=== PATIENT | female | born 1990 | race Caucasian/White ===

== ENCOUNTER 2019-01-30 17:25 | Emergency (ER) | payer BC ==
[2019-01-30 18:04] LABS: Urine Blood 1+ (NEG); Urine Glucose NEGATIVE (NEG); Urine Protein NEGATIVE (NEG)
[2019-01-30 18:39] LABS: Basophils % 0.6 % (0-1.3); Hematocrit 36.1 % (36.0-45.0); Lymphocytes % 25.7 % (15.3-44.8); MPV 7.7 fL (7.6-11.3); RBC Red Blood Cell Count 4.32 M/uL (3.86-4.86)
[2019-01-30 18:59] LABS: Blood Morphology Comment NOT SEEN (NOT SEEN); Platelet Estimate ADEQ; Urine White Blood Cell Casts OK
--- NOTE | 2019-01-30 19:01 | RAD REPORT ---
EXAM DESCRIPTION: US - Transvaginal OB - 01/30/2019 6:44 pm CLINICAL HISTORY: ABD CRAMPING, COMPARISON: <Comparisons> FINDINGS: A single gestational sac is seen within the uterus. The shape of the sac is within normal limits for gestational age. Mean sac diameter is 11 mm corresponding to 5 weeks 5 days gestational ag e. No yolk sac or embryo seen. The maternal adnexa and ovaries are within normal limits. Normal Doppler blood flow was demonstrated to both ovaries. IMPRESSION: Single gestational sac is seen within the endometrium. No embryonic components yet ident ified. Early IUP and blighted ovum both remain possibilities. Advise follow-up ultrasound in 7-10 day s.
[2019-01-30 19:09] LABS: BUN Blood Urea Nitrogen 12 mg/dL (7-18); Bicarbonate 24 mmol/L (21-32); Glucose Level 88 mg/dL (74-106); HCG, Quantitative 4389 mIU/mL (1-3); Potassium 3.7 mmol/L (3.5-5.1); Sodium Level 138 mmol/L (136-145)
--- NOTE | 2019-01-30 19:53 | ER ---
Nurse's Notes [facility] Name: Anisha Dietz Age: 28 yrs Sex: Female : 1990 Arrival Date: 01/30/2019 Time: 17:26 Bed 26 [facility] MD: Diagnosis: Threatened ;Less than 8 weeks gestation of Presentation: 01/30 17:31 Presenting complaint: Patient states: I am about 7 weeks and started having la1 some spotting and cramping last night. Transition of care: patient was not received from another setting of care. Onset of symptoms was January 30, 2019. Risk Assessment: Do you want to hurt yourself or someone else? Patient reports no desire to harm self or others. Initial Sepsis Screen: Does the patient meet any 2 criteria? No. Patient's initial sepsis screen is negative. Does the patient have a suspected source of infection? No. Patient's initial sepsis screen is negative. Care prior to arrival: None. 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 - Social history:: Smoking status: Patient/guardian denies using tobacco. - Ebola Screening: : No symptoms or risks identified at this time. Screenin:00 Abuse screen: Denies threats or abuse. Denies injuries from another. Nutritional ca1 screening: No deficits noted. Tuberculosis screening: No symptoms or risk factors identified. Fall Risk None identified. Assessment: 18:00 General: Appears in no apparent distress. comfortable, Behavior is calm, cooperative, ca1 appropriate for age. Pain: Complains of pain in suprapubic area Pain does not radiate. Pain currently is 6 out of 10 on a pain scale. Quality of pain is described as crampy, Pain began last night. Neuro: Level of Consciousness is awake, alert, obeys commands, Oriented to person, place, time, situation. Cardiovascular: Heart tones S1 S2 present Capillary refill < 3 seconds Patient's skin is warm and dry. Respiratory: Airway is patent Respiratory effort is even, unlabored, Respiratory pattern is regular, symmetrical, Breath sounds are clear bilaterally. GI: Abdomen is flat, non-distended, Bowel sounds present X 4 quads. Abd is soft and non tender X 4 quads. : Reports vaginal bleeding that is spotty, since last night. EENT: No deficits noted. No signs and/or symptoms were reported regarding the EENT system. Derm: Skin is intact, is healthy with good turgor, Skin is pink, warm \T\ dry. Musculoskeletal: Circulation, motion, and sensation intact. Capillary refill < 3 seconds, Range of motion: intact in all extremities. 19:00 Reassessment: Patient appears in no apparent distress at this time. Patient and/or ca1 family updated on plan of care and expected duration. Pain level reassessed. Patient is alert, oriented x 3, equal unlabored respirations, skin warm/dry/pink. 20:04 Reassessment: Patient appears in no apparent distress at this time. Patient is alert, ca1 oriented x 3, equal unlabored respirations, skin warm/dry/pink. Vital Signs: 17:30 BP 118 / 53; Pulse 77; Resp 16; Temp 97.5; Pulse Ox 100% on R/A; Weight 63.5 kg; Height la1 5 ft. 2 in. (157.48 cm); 19:00 BP 104 / 60; Pulse 79 MON; Resp 18 S; Pulse Ox 100% on R/A; ca1 20:04 BP 104 / 60; Pulse 69; Resp 16; Pulse Ox 100% on R/A; ca1 17:30 Body Mass Index 25.61 (63.50 kg, 157.48 cm) la1 ED Course: 17:26 Patient arrived in ED. as 17:30 Arm band placed on left wrist. la1 17:31 Triage completed. la1 17:53 Eugenia Loving [facility]-C [facility]. kb 17:53 Can Lang MD is Attending Physician. kb 18:00 Patient has correct armband on for positive identification. Placed in gown. Bed in low ca1 position. Call light in reach. Pulse ox on. NIBP on. Warm blanket given. 18:21 Initial lab(s) drawn, by me, sent to lab. Missed attempt(s): 22 gauge in right lt1 antecubital area. 18:30 Angie Del Real, RN is Primary Nurse. ca1 18:45 US Transvaginal Ob In Process Unspecified. EDMS 18:55 Inserted saline lock: 20 gauge in left antecubital area, using aseptic technique. rv 20:01 No provider procedures requiring assistance completed. IV discontinued, intact, ca1 bleeding controlled, No redness/swelling at site. Pressure dressing applied. Administered Medications: No medications were administered Outcome: 19:52 Discharge ordered by MD. kb 20:01 Discharged to home ambulatory, with significant other. ca1 20:01 Condition: stable 20:01 Discharge instructions given to patient, Instructed on discharge instructions, follow up and referral plans. Demonstrated understanding of instructions, follow-up care. 20:03 Patient left the ED. ca1 Signatures: Dispatcher [employer] EDKY Eugenia Loving, ICU CLERK-C ICU CLERK-Noa Kuo Lee, RN RN la1 Edi Dasilva RN RN rv Angie Del Real, RN RN ca1 [place] [id number]
--- NOTE | 2019-01-30 19:54 | EDPHYS ---
Physician Documentation [facility] Name: Anisha Dietz Age: 28 yrs Sex: Female : 1990 Arrival Date: 01/30/2019 Time: 17:26 Bed 26 Private MD: ED Physician Can Lang HPI: 01/30 18:21 This 28 yrs old Female presents to ER via Ambulatory with complaints of kb Vaginal Bleeding, + Preg <12wks. 18:21 The patient presents to the emergency department with abdominal pain, of the suprapubic kb area, that started today, described as crampy, vaginal bleeding, described as spotting. The estimated gestational age is 7 weeks. course: care: none. Previous pregnancies: in previous pregnancies patient has had. Associated signs and symptoms: Pertinent positives: abdominal pain, vaginal bleeding. The patient has not experienced similar symptoms in the past. The patient has not recently seen a physician. 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 - Social history:: Smoking status: Patient/guardian denies using tobacco. - Ebola Screening: : No symptoms or risks identified at this time. ROS: 18:21 Constitutional: Negative for fever, chills, and weight loss, ENT: Negative for injury, kb pain, and discharge, Neck: Negative for injury, pain, and swelling, Cardiovascular: Negative for chest pain, palpitations, and edema, Respiratory: Negative for shortness of breath, cough, wheezing, and pleuritic chest pain, Back: Negative for injury and pain, MS/Extremity: Negative for injury and deformity, Skin: Negative for injury, rash, and discoloration, Neuro: Negative for headache, weakness, numbness, tingling, and seizure. 18:21 Abdomen/GI: Positive for abdominal cramps. 18:21 : Positive for vaginal bleeding. Exam: 18:21 Constitutional: This is a well developed, well nourished patient who is awake, alert, kb and in no acute distress. Head/Face: Normocephalic, atraumatic. ENT: Nares patent. No nasal discharge, no septal abnormalities noted. Tympanic membranes are normal and external auditory canals are clear. Oropharynx with no redness, swelling, or masses, exudates, or evidence of obstruction, uvula midline. Mucous membranes moist. Neck: Trachea midline, no thyromegaly or masses palpated, and no cervical lymphadenopathy. Supple, full range of motion without nuchal rigidity, or vertebral point tenderness. No Meningismus. Chest/axilla: Normal chest wall appearance and motion. Nontender with no deformity. No lesions are appreciated. Cardiovascular: Regular rate and rhythm with a normal S1 and S2. No gallops, murmurs, or rubs. Normal PMI, no JVD. No pulse deficits. Respiratory: Lungs have equal breath sounds bilaterally, clear to auscultation and percussion. No rales, rhonchi or wheezes noted. No increased work of breathing, no retractions or nasal flaring. Abdomen/GI: Soft, non-tender, with normal bowel sounds. No distension or tympany. No guarding or rebound. No evidence of tenderness throughout. Skin: Warm, dry with normal turgor. Normal color with no rashes, no lesions, and no evidence of cellulitis. MS/ Extremity: Pulses equal, no cyanosis. Neurovascular intact. Full, normal range of motion. Neuro: Awake and alert, GCS 15, oriented to person, place, time, and situation. Cranial nerves II-XII grossly intact. Motor strength 5/5 in all extremities. Sensory grossly intact. Cerebellar exam normal. Normal gait. Vital Signs: 17:30 BP 118 / 53; Pulse 77; Resp 16; Temp 97.5; Pulse Ox 100% on R/A; Weight 63.5 kg; Height la1 5 ft. 2 in. (157.48 cm); 19:00 BP 104 / 60; Pulse 79 MON; Resp 18 S; Pulse Ox 100% on R/A; ca1 20:04 BP 104 / 60; Pulse 69; Resp 16; Pulse Ox 100% on R/A; ca1 17:30 Body Mass Index 25.61 (63.50 kg, 157.48 cm) la1 MDM: 17:56 Patient medically screened. kb 18:23 Data reviewed: vital signs, nurses notes. Data interpreted: Pulse oximetry: on room air kb is 100 %. Interpretation: normal. 19:51 Counseling: I had a detailed discussion with the patient and/or guardian regarding: the kb historical points, exam findings, and any diagnostic results supporting the discharge/admit diagnosis, lab results, radiology results, the need for outpatient follow up, a family practitioner, to return to the emergency department if symptoms worsen or persist or if there are any questions or concerns that arise at home. ED course: Lab said Rh needs to be recollected due to wrong date being on label. I looked at pt's old records from previous delivery and Dr Gillespie documented that pt is Rh positive. Pt reports she has never had to have rhogam in the past. 01/30 17:51 Order name: Urine Dipstick--Ancillary (enter results); Complete Time: 18:07 em1 01/30 17:51 Order name: Urine --Ancillary (enter results); Complete Time: 18:07 em1 01/30 17:56 Order name: Quantitative Hcg kb 01/30 17:56 Order name: Basic Metabolic Panel; Complete Time: 19:12 kb 01/30 17:56 Order name: CBC with Diff; Complete Time: 19:06 kb 01/30 17:56 Order name: IV Saline Lock; Complete Time: 18:51 kb 01/30 17:56 Order name: Labs collected and sent; Complete Time: 18:38 kb 01/30 17:56 Order name: NPO; Complete Time: 18:39 kb 01/30 17:56 Order name: US Transvaginal Ob; Complete Time: 19:06 kb 01/30 17:56 Order name: HCG, Quantitative; Complete Time: 19:12 EDMS 01/30 18:41 Order name: CBC Smear Scan; Complete Time: 19:06 EDMS Administered Medications: No medications were administered Disposition: 01/31 07:09 Co-signature as Attending Physician, Can Lang MD I agree with the assessment and dustin plan of care. Disposition: 01/30/19 19:52 Discharged to Home. Impression: Threatened , Less than 8 weeks gestation of . - Condition is Stable. - Discharge Instructions: First Trimester of , [id number], Threatened Miscarriage, [id number]. - Medication Reconciliation Form, Thank You Letter, Antibiotic Education, Prescription Opioid Use form. - Follow up: Emergency Department; When: As needed; Reason: Worsening of condition. Follow up: Private Physician; When: 2 - 3 days; Reason: Recheck today's complaints, Continuance of care, Re-evaluation by your physician. Signatures: Dispatcher [employer] EDEugenia Tong, SUKHI LEMUS-Can Henley MD MD cha Attema, Lee RN RN la1 Angie Del Real RN RN ca1 Corrections: (The following items were deleted from the chart) 01/30 20:03 19:52 01/30/2019 19:52 Discharged to Home. Impression: Threatened ; Less than 8 ca1 weeks gestation of . Condition is Stable. Forms are Medication Reconciliation Form, Thank You Letter, Antibiotic Education, Prescription Opioid Use. Follow up: Emergency Department; When: As needed; Reason: Worsening of condition. Follow up: Private Physician; When: 2 - 3 days; Reason: Recheck today's complaints, Continuance of care, Re-evaluation by your physician. kb
[2019-01-30 20:16] VITALS: TEMP 97.5; O2SAT 100
[2019-01-30 20:17] VITALS: BP 104/60
== END 2019-01-30 20:03 | disposition home or self-care (01) ==
LOC: ER 17:25
DX: O20.0 Threatened abortion (principal); Z3A.01 Less than 8 weeks gestation of pregnancy
CPT/HCPCS: 36415; 76817; 80048; 81003; 81025; 84702; 85025; 99284